=== PATIENT | female | born 1990 | race Hispanic/Latino ===

== ENCOUNTER 2016-03-28 09:41 | Day surgery (SDC) | payer OTHER ==
[~2016-03-28] VITALS: Ht 149.9 cm; Wt 64.4 kg
[2016-03-28] VITALS (10 sets, daily range): BP systolic 105–122; BP diastolic 58–78; PULSE 73–101; RESP 12–23; O2SAT 98–100
[~2016-03-28 09:41] MED LIST: PREN-107 PO; iron sulfate PO
[2016-03-28] MEDS ORDERED: Ondansetron 2 mg/mL 2 mL Inj ONE (09:42)
[2016-03-28] MEDS ORDERED: fentaNYL-PF 50 mCg/mL 2 mL Inj ONE (09:42)
[2016-03-28] MEDS ORDERED: Propofol 10,000 mCg/mL 20 mL Inj ONE (09:42)
[2016-03-28] MEDS ORDERED: Dexamethasone 4 mg/mL Inj ONE (09:42)
[2016-03-28] MEDS ORDERED: Lactated Ringer's 1,000 ML IV ONE (10:33)
--- NOTE | 2016-03-28 10:39 | PCM.HPSURG ---
Subjective Date of Service: Mar 28, 2016 Referring Provider: Admitting Physician: Primary Care Physician: Emmanuel Montero MD Attending Physician: Justin Rosales MD Chief Complaint Missed History of Present Illness 25 yo with history of anemia had two ultrasounds confirming an 8 week size pole with no cardiac activity on 03/09/16 and 03/16/16. She continues to have no bleeding or cramping. Allergy Allergies: Coded Allergies: No Known Allergies (Unverified , 07/17/15) Medications Home medications Iron Past Surgical History Operations: none Social History Hx Tobacco Use: No PMH HEENT History History of ENT Problems?: No Cardiovascular History Other Cardiac History: Syncope in 2012 Respiratory History of Respiratory Problem: No Neurological History Hx Neurologic Problems?: No Gastrointestinal History HX of GI Problems?: No Genitourinary History Hx of Gu Problems?: No Female/Male History Reproductive History Female: Positive for: Currently ? Musculoskeletal History Hx Musculoskeletal Problems?: No Psycho Social History Hx of Psycho/Social Problems?: No Other History Hx Any Other Health Problems?: No Diabetes: No Social History Hx Tobacco Use: No Smoking Status: Unknown if Ever Smoker Family History Family History: noncontributory Review of Systems Constitutional: Denies: Chills, Fever Cardiovascular: Denies: Chest Pain Respiratory: Denies: Cough Gastrointestinal: Reports: Hematochezia, Nausea, Denies: Vomiting Neurological: Reports: Dizziness, Denies: Weakness H&P Surgical Exam Exam General: Alert, Oriented X3 Lungs: Clear to Auscultation, Normal Air Movement Heart: Regular Rate/Rhythm, No Murmurs/Rubs/Gallops Abdomen: Soft, Non-tender, Non-distended Assessment & Plan Assessment 25 yo healthy female with missed . No cardiac activity at least since US on Mar 06, 2016 with no passing of conceptus over the last 2.5 weeks. Options for management moving forward discussed. Due to history of anemia Surgical D&C was selected to help decrease risk of uncontrolled bleeding. Problems: (1) Missed with demise before 20 completed weeks of gestation Plan: Suction Dilation and Curettage to be performed today. Status: Acute ICD Code: O02.1 Pain Evaluation: Adequate Pain Control VTE Mechanical Devices: Intermittant Pneumatic CD Plan: Suction Dilation and Curettage to be performed today. Resuscitation Status: CPR: Attempt Resuscitation Attending Statement: The patient was seen and examined together with Dr. Aida Montero DO on 03/28/2016 and I agree with the history, exam and plan as outlined in the note above. AIDA MONTERO DO Mar 28, 2016 10:39 Justin Rosales MD Mar 28, 2016 13:26
[2016-03-28 10:50] LABS: BASOPHILS % (AUTO) 0.2 % (0-3); EOSINOPHILS % (AUTO) 1.5 % (0-5); MONOCYTES % (AUTO) 4.6 % (4-12); Mean Corpuscular Hemoglobin 24.8 pg (27.0-35.0); NEUTROPHILS % (AUTO) 72.6 % (40-74); Platelet Count 247 bil/L (150-400)
--- NOTE | 2016-03-28 12:35 | PCM.HPANE ---
Patient Data Surgeon Admitting Provider: Attending Provider:Justin Rosales MD Primary Care Physician:Emmanuel Montero MD Other Provider:Asmita [place]ingham Anesthesia Reason for Visit Missed Ab Ht/WT & BMI Height (Feet): 4 Height (Inches): 11 Weight (Kilograms): 64.4 Body Mass Index 28.00 Allergies Coded Allergies: No Known Allergies (Unverified , 07/17/15) Diabetes History Hx Diabetes?: No Medications Home Meds Incl Beta Dale: No Reported Medications [iron sulfate] No Conflict [id number] Mg PO DAILY 02/24/16 Vit37/Iron/Folic Acid (P[place]ata Chewable Tablet)1 Each Tab.chew1 Each PO DAILY 02/24/16 History History of ENT Problems?: No Other Cardiac History: Syncope in 2012 Hx of Respiratory Problem?: No Hx Neurologic Problems?: No Hx of GI Problems?: No Hx of Problems?: No Female Hx: Denies:: Currently (HERE FOR MISSED ) Hx Musculoskeletal Problems?: No Hx of Psycho/Social Problems?: No Hx Any Other Health Problems?: No Hx Diabetes: No Smoking Status: Unknown if Ever Smoker Stop/Bang LAURI Risk Assessment: Low Risk, <3 Yes Risk Assessment Category Category 1A: Patient has history of documented sleep apnea, and HAS NOT received any narcotic, sedative or anesthesia administration during this stay. Category 1B: Patient has history of documented sleep apnea, and HAS received any narcotic , sedative or anesthesia administration during this stay Category 2: Patient has SUSPECTED Obstructive Sleep Apnea, and HAS received any narcotic , sedative or anesthesia administration during this stay. Category 3: Patient has SUSPECTED Obstructive Sleep Apnea and HAS NOT received narcotic, sedative or anesthesia administration during this stay. Category 4: Outpatient in Procedural Areas with known sleep apnea or who screen positive for High Risk via the STOP/BANG questionnaire. Exam Exam Vital Signs Vital Signs Date Time Temp Pulse Resp B/P Pulse Ox O2 Delivery O2 Flow Rate FiO2 03/28/16 09:55 35.5 101 12 122/78 99 Room Air General Appearance: Alert, Oriented X3, Cooperative, No Acute Distress HEENT/AIRWAY: MP 1 Lungs: Normal Air Movement Heart: Exam Unremarkable Meds/Labs/Diagnostics Admission Meds Current Medications Doxycycline Hyclate 100 mg 100 mg STK-MED ONCE .ROUTE Last administered on 03/28t 10:46; Start 03/28/16 at 10:28; Stop 03/28/16 at 10:30; Status DC Lactated Ringer's (Lr) 1,000 ml @ ud STK-MED ONCE IV Last administered on 03/28t 10:33; Start 03/28/16 at 10:33; Stop 03/28/16 at 10:34; Status DC Labs Test 03/28/16 10:45 White Blood Count 6.1th/mm3 (3.8-10.1) Red Blood Count 5.21mil/mm3 (3.90-5.20) Hemoglobin 12.9g/dL (12.0-15.6) Hematocrit 39.6% (35.0-46.0) Mean Corpuscular Volume 76.0fL (81-100) Mean Corpuscular Hemoglobin 24.8pg (27.0-35.0) Mean Corpuscular Hemoglobin Concent 32.6% (32.0-37.0) Red Cell Distribution Width 18.3% (12.3-15.4) Platelet Count 247bil/L (150-400) Neutrophils (%) (Auto) 72.6% (40-74) Lymphocytes (%) (Auto) 20.8% (14-46) Monocytes (%) (Auto) 4.6% (4-12) Eosinophils (%) (Auto) 1.5% (0-5) Basophils (%) (Auto) 0.2% (0-3) Plan Impression Patient chart reviewed, patient interviewed and anesthestic plan with risks, benefits, and alternatives discussed, and informed consent obtained. NPO Status: CLEARS AT 0700 ASA Physical Status: ASA2 Mod Systemic Disease Anesthetic Plan: GA Bene/Risks/Altern/Consents: Yes HP Complete Prior to Induction: Yes Henrique Massey MD Mar 28, 2016 12:35
[2016-03-28] MEDS ORDERED: Lactated Ringer's 1,000 ML IV SCH (12:56)
[2016-03-28] MEDS ORDERED: Lactated Ringer's 500 ML IV PRN (12:56)
[2016-03-28] MEDS ORDERED: HYDROmorphone 1 mg/mL Inj IVPUSH PRN (13:00)
[2016-03-28] MEDS ORDERED: Ondansetron 2 mg/mL 2 mL Inj IVPUSH PRN ×2 (13:00→13:40)
[2016-03-28] MEDS ORDERED: EPHEDrine Sulfate 50 mg/mL Inj IVPUSH PRN (13:00)
[2016-03-28] MEDS ORDERED: Dexamethasone 4 mg/mL Inj IVPUSH PRN (13:00)
[2016-03-28] MEDS ORDERED: MetoCLOpramide 5 mg/mL 2 mL Inj IVPUSH PRN (13:00)
[2016-03-28] MEDS ORDERED: Albuterol-Ipratropium 3 mL Inhalation Solution NEB PRN (13:00)
[2016-03-28] MEDS ORDERED: fentaNYL-PF 50 mCg/mL 2 mL Inj IVPUSH PRN (13:00)
[2016-03-28] MEDS ORDERED: Phenylephrine 10,000 mCg/mL Inj IVPUSH PRN (13:00)
[2016-03-28] MEDS ORDERED: Methylergonovine 0.2 mg/mL Inj IM ONE (13:17)
--- NOTE | 2016-03-28 13:24 | PCM.SURGOP ---
Surgical Operative Report Date of Service: Mar 28, 2016 Pre Operative Diagnosis 1. Missed Post Operative Diagnosis 1. Missed Procedure: 1. Suction Dilation and Curettage Surgeon and Padded Products Inspector Trimmer: Surgeon: Justin Rosales MD Assistants: None Indication for Procedure Patient is a 25-year-old 2 para 0 with a history of chronic iron deficiency anemia who has an 8 week size missed . Findings: 1. Moderate amount of products of conception. 2. Normal-appearing vagina and cervix. Procedure Details The patient was taken to the operating room where her general anesthesia was obtained without difficulty. She was placed in a lithotomy position in [facility] and prepared and draped in the normal sterile fashion. A preoperative surgical time out was performed. A bivalve speculum was inserted into the patient's vagina and the cervix was identified and grasped with a single-tooth tenaculum. The cervix was then dilated using Hegar cervical dilators to #8. A #8 curved suction curette was then inserted into the endometrial cavity and the suction device was activated. Suction curettings were obtained to clear the uterus of products of conception. The suction curette was removed and a sharp curette was inserted to palpate the gritty texture of the endometrial cavity. All instruments were then removed from the patient's vagina. Silver nitrate was applied to the tenaculum sites for hemostasis. The patient was given 0.2 mg of Methergine IM intraoperatively to help with hemostasis. All lap instrument and needle counts were correct times two at the end of the procedure and patient was taken to recovery awake and in good condition. Complications There were no periprocedural complications identified. Surgical Specimen Removed: Yes Specimen sent to Pathology: Yes Surgical Specimen description: 1. Products of conception Anesthetic Plan: GA Grafts, Implants: None Output, Estimated Blood Loss: 100 Blood Administration during valente: No Catheters: None Post Operative Plan Discharge patient home when awake and stable. Justin Rosales MD Mar 28, 2016 13:24
--- NOTE | 2016-03-28 13:31 | PCM.ANEP1 ---
Post Anesthesia Phase 1 PACU Phase 1 Assessment Date of Service: Mar 28, 2016 Vital Signs see anesthesia record Vital Signs Date Time Temp Pulse Resp B/P Pulse Ox O2 Delivery O2 Flow Rate FiO2 03/28/16 09:55 35.5 101 12 122/78 99 Room Air Anesthetic Administered: GA Level of Alertness: Sleepy, easy to arouse CROOKS's with Equal Strength: Yes Pain: No Nausea or Vomiting: No Oxygen Delivery: Room Air Lungs: Normal Air Movement Henrique Massey MD Mar 28, 2016 13:31
--- NOTE | 2016-03-28 13:32 | PCM.ANEP2 ---
Post Anesthesia Evaluation ASA/CMS Post Anesthesia VS in Patient's Normal Range?: Yes Resp Stable; Airway Patent?: Yes CV Function & Hydration Stable: Yes Mental Status Recovered?: Yes Pain control Satisfactory?: Yes N/V Control Satisfactory?: Yes Henrique Massey MD Mar 28, 2016 13:32
--- NOTE | 2016-03-28 13:36 | PCM.DIGYN ---
Surgical Discharge Instruction Dates of Hospitalization Date of Hospital Admission 03/28/2016 Providers Admitting Physician: Primary Care Physician: Emmanuel Montero MD Attending Physician: Justin Rosales MD Diagnosis at Time of Discharge Diagnosis at time of discharge 8 week size missed Post-operative diagnosis 1. Missed Problems: (1) Missed with demise before 20 completed weeks of gestation Status: Acute ICD Code: O02.1 Diet Discharge Diet: No restrictions Activity Discharge Activity-General: Try not to overdue, Be up and about Dressing and Incisional Care Hygiene: May shower, NO bathtub, hot tub or whirlpool (until vaginal bleeding has stopped), Other (no sexual intercourse for 2 weeks) Follow Up Plan Follow-up Provider (F9): Justin Rosales MD Follow-up appointment: Weeks (2) Call your provider for: Fever, Chills, Shortness of breath, Heavy vaginal bleeding, Increasing pain Justin Rosales MD Mar 28, 2016 13:36
[2016-03-28] MEDS ORDERED: oxyCODONE-Acetamin 5-325 mg Tablet PO PRN (13:40)
--- NOTE | 2016-03-30 12:53 | PATH ---
SURGICAL PATHOLOGY Attending Physician:Justin Rosales, CASE STATUS: Signed Out PATIENT NAME: KVNG WADSWORTH PID: [id number] : 1990 DATE COLLECTED:03/28/2016 20:41 SPECIMEN: Products of conception CLINICAL HISTORY: MISSED PRODUCTS OF CONCEPTION FINAL DIAGNOSIS: Products of Conception: Immature placental tissue with avascular chorionic villi. ICD10 O02.1 GROSS DESCRIPTION: The specimen is received in one formalin filled container labeled with the patient's name, sublabeled "missed AB (products of conception)" and consists of multiple portions of red-bang tissue and blood which aggregate to 7.0 x 5.0 x 1.5 CM. No grossly recognizable parts are observed. [employer] sections are submitted in 2 cassettes. 03/28/2016 [facility] ICD-9 CODES: CPT CODES: 1: 39312 Electronically Signed Out Kris Hart MD [facility] Pathology [facility] [address] [facility], [place] [address] Technical component performed at [facility], [address] [place] [address] Ave[address], [address]
== END 2016-03-28 23:59 | disposition home or self-care (01) ==
LOC: SAS 09:41
PROVIDERS: ATTEND Obstetrics & Gynecology
DX: O02.1 Missed abortion (principal); D64.89 Other specified anemias; Z3A.08 8 weeks gestation of pregnancy
CPT/HCPCS: 36415; 59820; 85025; 88305; J1100; J2210; J2250; J2405; J7120